=== PATIENT | female | born 1970 | race Hispanic/Latino ===

== ENCOUNTER 2022-07-02 11:25 | Emergency (ER) | payer OTHER ==
[~2022-07-02] VITALS: Ht 157.5 cm; Wt 72.6 kg
[2022-07-02 13:39] VITALS: BP 142/85
[2022-07-02] MEDS ORDERED: METH4TAB3 PO (13:41)
[2022-07-02] MEDS ORDERED: SOLU-MEDROL 125MG VIAL ONE (13:47)
[2022-07-02] MEDS ORDERED: SOLU-MEDROL 125MG VIAL IM ONE (14:00)
== END 2022-07-02 13:58 | disposition home or self-care (01) ==
LOC: EDH 11:25
DX: S00.83XA Contusion of other part of head, initial encounter (principal); G89.29 Other chronic pain; M25.551 Pain in right hip; R29.6 Repeated falls; I10 Essential (primary) hypertension; X58.XXXA Exposure to other specified factors, initial encounter; Y93.89 Activity, other specified; Y92.89 Other specified places as the place of occurrence of the external cause; Y99.8 Other external cause status
CPT/HCPCS: 99284; 70486; 96372; J2930

== ENCOUNTER 2024-05-20 19:44 | Emergency (ER) | payer MEDICARE ==
[~2024-05-20] VITALS: Ht 154.9 cm; Wt 72.6 kg
[~2024-05-20 19:44] MED LIST: METH4TAB3 PO
[2024-05-20 20:15] LABS: BASOPHILS # (AUTO) 0.04 K/uL (0.00-0.20); BASOPHILS % (AUTO) 0.5 % (0.0-5.0); EOSINOPHILS # (AUTO) 0.24 K/uL (0.00-0.70); IMMATURE GRANULOCYTE ABSOLUTE 0.02 K/uL (0-1); LYMPHOCYTES # (AUTO) 2.5 K/uL (1.0-4.8); LYMPHOCYTES % (AUTO) 31.5 % (21.0-51.0); MEAN CORPUSCULAR HGB CONC 32.1 g/dL (32.0-36.0); MEAN CORPUSCULAR VOLUME 87.2 fL (79-99); MONOCYTES # (AUTO) 0.7 K/uL (0.1-1.0); NEUTROPHILS # (AUTO) 4.4 K/uL (1.8-7.7); NEUTROPHILS % (AUTO) 55.7 % (40.0-77.0); PLATELET COUNT (AUTO) 282 K/uL (130-400); RED BLOOD CELL COUNT(AUTO) 4.36 MIL/uL (4.00-5.50)
[2024-05-20 20:25] LABS: CREATININE 0.8 mg/dL (0.5-1.0); POTASSIUM 3.4 mmol/L (3.5-5.1)
[2024-05-20 20:30] LABS: ALBUMIN 3.5 g/dL (3.5-5.0); BILIRUBIN,TOTAL 0.4 mg/dL (0.2-1.0); TOTAL PROTEIN, SERUM 8.1 g/dL (6.0-8.3)
[2024-05-20 20:36] LABS: B-TYPE NATRIURETIC PEPTIDE 32 pg/mL (0-100)
[2024-05-20 20:55] LABS: ADD UA MICROSCOPIC YES; APPEARANCE,URINE CLOUDY (CLEAR); BILIRUBIN,URINE NEGATIVE (NEGATIVE); COLOR,URINE YELLOW (YELLOW); GLUCOSE, URINE (UA) NEGATIVE (NEGATIVE); KETONES,URINE NEGATIVE (NEGATIVE); LEUKOCYTE ESTERASE ,URINE 250 Leu/uL (NEGATIVE); NITRATE,URINE NEGATIVE (NEGATIVE); OCCULT BLOOD,URINE NEGATIVE (NEGATIVE); PH,URINE 5.5 (5.0-8.0); PROTEIN,URINE 10 mg/dL (NEGATIVE); UROBILINOGEN,URINE 0.2 mg/dL (0.2-1.0)
[2024-05-20 20:58] LABS: BACTERIA,URINE RARE /HPF (None Seen); HYALINE CASTS, URINE 0-1 /LPF (0-1 /LPF); MUCUS,URINE RARE LPF (None Seen); OTHER CASTS, URINE 1 /LPF (None Seen); SQUAMOUS EPITHELIAL CELL,UR MOD /HPF (0-2); YEAST,URINE BUDDING FEW /HPF (None Seen)
[2024-05-20 20:59] LABS: HCG,QUALITATIVE URINE NEGATIVE (NEGATIVE)
[2024-05-20] MEDS ORDERED: HYDR28.484 TP (21:35)
[2024-05-20] MEDS ORDERED: AMOX1TAB16 PO (21:35)
[2024-05-20 22:11] VITALS: BP 120/77; PULSE 82; RESP 16; TEMP 98.3; O2SAT 99
[2024-05-20] MEDS ORDERED: KETO10TA2 PO (22:23)
== END 2024-05-20 22:25 | disposition home or self-care (01) ==
LOC: EDH 19:44
DX: M79.89 Other specified soft tissue disorders (principal); H66.93 Otitis media, unspecified, bilateral; L25.9 Unspecified contact dermatitis, unspecified cause; I10 Essential (primary) hypertension; G89.29 Other chronic pain; M79.604 Pain in right leg; Z79.899 Other long term (current) drug therapy; Z98.890 Other specified postprocedural states
CPT/HCPCS: 36415; 80053; 81001; 81025; 83880; 84484; 85025; 87086; 93005; 93970